=== PATIENT | female | born 1965 | race Caucasian/White ===

== ENCOUNTER 2015-11-20 12:33 | Outpatient (RCR) | payer BC ==
[2015-07-10 13:22] VITALS: BP 132/81
[~2015-11-20 12:33] MED LIST: ALBUTEROL2.5 MG/3 M IH; AMARYL4 M1 PO; COZAAR25 M1 PO; ESTRADIOL TD; GLUCOPHAGE500 MG/TAB PO; LANTUS PEN100 U/ML SC; LEVOTHYROXINE125 MCG PO; NAPROSYN500 M1 PO; NOVOLOG 100U100 U/ML SQ; PREDNISONE20 M1 PO; SIMVASTATIN40 M1 PO; SYMBICORT1 AE2 IH; TANZEUM30 MG SC; [UNRECOGNIZED DRUG - OTHER] TD
[2016-09-24] MEDS ORDERED: NEURONTIN100 M1 PO (12:42)
== END 2016-02-18 | disposition home or self-care (01) ==
LOC: OT
DX: S56.911D Strain of unspecified muscles, fascia and tendons at forearm level, right arm, subsequent encounter (principal); Y33.XXXD Other specified events, undetermined intent, subsequent encounter

== ENCOUNTER → 2016-04-26 | Outpatient (CLI) | payer OTHER ==
[~2016-04-26] MED LIST changes: +NEURONTIN100 M1 PO
== END ==
LOC: LAB 08:49
DX: E78.2 Mixed hyperlipidemia (principal); E11.9 Type 2 diabetes mellitus without complications; C73 Malignant neoplasm of thyroid gland

== ENCOUNTER → 2016-06-25 | Outpatient (CLI) | payer OTHER ==
[2015-07-10 13:22] VITALS: BP 132/81
== END ==
LOC: LAB 07:50
DX: E78.2 Mixed hyperlipidemia (principal); E11.8 Type 2 diabetes mellitus with unspecified complications; E11.65 Type 2 diabetes mellitus with hyperglycemia; Z79.4 Long term (current) use of insulin; C73 Malignant neoplasm of thyroid gland

== ENCOUNTER → 2016-09-24 | Outpatient (CLI) | payer OTHER ==
[~2016-09-24] VITALS: Ht 167.6 cm; Wt 97.7 kg
[2016-09-24 11:05] VITALS: BP 143/84
[2016-09-24 13:06] VITALS: BP 136/70
[2016-09-24 13:45] VITALS: BP 121/71
== END ==
LOC: LAB 10:51 → AMSURD 10:51 → RAD 10:51
DX: R19.7 Diarrhea, unspecified (principal); R10.9 Unspecified abdominal pain; K92.1 Melena; R53.1 Weakness; R55 Syncope and collapse
CPT/HCPCS: C9113; J7030

== ENCOUNTER → 2016-09-27 | Outpatient (CLI) | payer OTHER ==
[2016-09-24 13:45] VITALS: BP 121/71
== END ==
LOC: LAB 08:16
DX: R19.7 Diarrhea, unspecified (principal); R10.9 Unspecified abdominal pain; K92.1 Melena; R55 Syncope and collapse; R53.1 Weakness

== ENCOUNTER → 2018-05-05 | Outpatient (CLI) | payer OTHER ==
[2016-09-24 13:45] VITALS: BP 121/71
[2018-05-05 10:53] LABS: EOS # 0.2 (0.04-0.40); EOS % 3.6 % (1.0-5.0); HEMATOCRIT 40.3 % (37.0-47.0); HEMOGLOBIN 13.4 g/dL (12.5-16.0); LYMPH# 1.7 (1.50-4.00); MEAN CELL VOLUME 85 fl (78-100); MEAN CORPUSCULAR HEMOGLOBIN 28 pg (27-31); MEAN CORPUSCULAR HGB CONC 33 g/dL (33-37); MEAN PLATELET VOLUME 9.2 fl (7.4-10.4); MONO # 0.4 (0.20-0.80); NEU # 3.4 (1.40-6.50); PLATELET COUNT 361 K/mm3 (130-400); RED BLOOD COUNT 4.77 M/mm3 (4.10-5.30); RED CELL DISTRIBUTION WIDTH 13.4 % (11.5-14.5); WHITE BLOOD COUNT 5.6 K/mm3 (4.8-10.8)
[2018-05-05 11:06] LABS: ALBUMIN 3.9 g/dL (3.5-5.0); CALCIUM 8.8 mg/dL (8.4-10.2); POTASSIUM 4.1 mmol/L (3.6-5.0); TOTAL BILIRUBIN 0.6 mg/dL (0.2-1.3); TOTAL PROTEIN 7.3 g/dL (6.3-8.2)
[2018-05-05 12:22] LABS: ERYTHROCYTE SEDIMENTATION RATE 23 mm/hr (0-30)
== END ==
LOC: LAB 09:54
PROVIDERS: Internal Medicine
DX: E11.9 Type 2 diabetes mellitus without complications (principal); E78.2 Mixed hyperlipidemia; C73 Malignant neoplasm of thyroid gland; R20.2 Paresthesia of skin; K90.9 Intestinal malabsorption, unspecified

== ENCOUNTER → 2018-05-07 | Outpatient (CLI) | payer OTHER ==
[2016-09-24 13:45] VITALS: BP 121/71
== END ==
LOC: LAB 08:27
PROVIDERS: Internal Medicine
DX: K90.9 Intestinal malabsorption, unspecified (principal)

== ENCOUNTER → 2018-07-06 | Outpatient (CLI) | payer OTHER ==
[2016-09-24 13:45] VITALS: BP 121/71
== END ==
LOC: RAD 09:05
DX: M46.92 Unspecified inflammatory spondylopathy, cervical region (principal); G89.18 Other acute postprocedural pain

== ENCOUNTER → 2018-07-15 | Outpatient (CLI) | payer OTHER ==
[2016-09-24 13:45] VITALS: BP 121/71
== END ==
LOC: RAD 08:09
DX: M47.812 Spondylosis without myelopathy or radiculopathy, cervical region (principal)

== ENCOUNTER 2018-07-27 14:30 | Outpatient (RCR) | payer OTHER ==
[2016-09-24 13:45] VITALS: BP 121/71
== END 2018-08-09 ==
LOC: PT
DX: S29.012A Strain of muscle and tendon of back wall of thorax, initial encounter (principal); M25.519 Pain in unspecified shoulder

== ENCOUNTER 2018-08-13 16:00 | Outpatient (RCR) | payer OTHER ==
[2016-09-24 13:45] VITALS: BP 121/71
== END 2018-08-13 16:30 | disposition still patient (30) ==
LOC: PT 16:00
DX: S29.012A Strain of muscle and tendon of back wall of thorax, initial encounter (principal)

== ENCOUNTER → 2019-06-22 | Outpatient (CLI) | payer OTHER ==
[2016-09-24 13:45] VITALS: BP 121/71
[2019-06-22 14:44] LABS: ALBUMIN 3.7 g/dL (3.5-5.0); POTASSIUM 4.3 mmol/L (3.5-5.1)
[2019-06-22 14:45] LABS: CALCIUM 8.9 mg/dL (8.3-10.5)
[2019-06-22 14:46] LABS: TOTAL PROTEIN 7.2 g/dL (6.4-8.3)
[2019-06-22 14:49] LABS: EOS # 0.2 (0.04-0.40); EOS % 3.7 % (1.0-5.0); HEMATOCRIT 38.7 % (37.0-47.0); HEMOGLOBIN 12.7 g/dL (12.5-16.0); LYMPH# 1.8 (1.50-4.00); MEAN CELL VOLUME 85 fl (78-100); MEAN CORPUSCULAR HEMOGLOBIN 28 pg (27-31); MEAN CORPUSCULAR HGB CONC 33 g/dL (33-37); MEAN PLATELET VOLUME 9.3 fl (7.4-10.4); MONO # 0.4 (0.20-0.80); PLATELET COUNT 355 K/mm3 (130-400); RED BLOOD COUNT 4.56 M/mm3 (4.10-5.30); RED CELL DISTRIBUTION WIDTH 13.4 % (11.5-14.5); WHITE BLOOD COUNT 5.4 K/mm3 (4.8-10.8)
[2019-06-22 15:19] LABS: D-DIMER 0.31 mg/L FEU (0.15-0.50)
[2019-06-22 15:28] LABS: TOTAL BILIRUBIN 0.3 mg/dL (0.2-1.2)
== END ==
LOC: RAD 14:01
PROVIDERS: Internal Medicine
DX: R06.02 Shortness of breath (principal)

== ENCOUNTER → 2019-06-30 | Outpatient (CLI) | payer OTHER ==
[2016-09-24 13:45] VITALS: BP 121/71
== END ==
LOC: VAS 15:41 → RAD 15:45
DX: E11.9 Type 2 diabetes mellitus without complications (principal); R06.02 Shortness of breath; R60.9 Edema, unspecified

== ENCOUNTER → 2019-07-09 | Outpatient (CLI) | payer OTHER ==
[2016-09-24 13:45] VITALS: BP 121/71
[2019-07-09 10:35] LABS: POTASSIUM 4.1 mmol/L (3.5-5.1)
[2019-07-09 10:36] LABS: CALCIUM 9.4 mg/dL (8.3-10.5)
[2019-07-09 10:43] LABS: MAGNESIUM 1.54 mg/dL (1.60-2.60)
== END ==
LOC: LAB 09:50
PROVIDERS: Internal Medicine
DX: E11.9 Type 2 diabetes mellitus without complications (principal); R60.1 Generalized edema

== ENCOUNTER 2020-07-19 20:42 | Observation (INO) | payer OTHER ==
[~2020-07-19 20:42] MED LIST changes: -ESTRADIOL TD; +ESTRADIOL0.1 MG/24 TD; -LANTUS PEN100 U/ML SC; +LANTUS SOLOS100 U/ML SQ; -[UNRECOGNIZED DRUG - OTHER] TD
[2020-07-19 21:25] LABS: BASO # 0.01 (0.02-0.10); EOS % 3.7 % (1.0-5.0); HEMATOCRIT 36.6 % (37.0-47.0); HEMOGLOBIN 12.6 g/dL (12.5-16.0); LYMPH# 2.16 (1.50-4.00); MEAN CELL VOLUME 84 fl (78-100); MEAN CORPUSCULAR HEMOGLOBIN 29 pg (27-31); MEAN CORPUSCULAR HGB CONC 34 g/dL (33-37); MONO # 0.23 (0.20-0.80); NEU # 2.75 (1.40-6.50); PLATELET COUNT 283 K/mm3 (130-400); RED BLOOD COUNT 4.34 M/mm3 (4.10-5.30); RED CELL DISTRIBUTION WIDTH 13.7 % (11.5-14.5); WHITE BLOOD COUNT 5.4 K/mm3 (4.8-10.8)
[2020-07-19 21:36] LABS: ALBUMIN 3.8 g/dL (3.5-5.0); POTASSIUM 4.1 mmol/L (3.5-5.1)
[2020-07-19 21:37] LABS: CALCIUM 8.8 mg/dL (8.3-10.5)
[2020-07-19 21:38] LABS: TOTAL PROTEIN 7.8 g/dL (6.4-8.3)
[2020-07-19 21:40] LABS: TOTAL BILIRUBIN 0.4 mg/dL (0.2-1.2)
[2020-07-19 22:50] LABS: URINE APPEARANCE CLEAR; URINE BILIRUBIN NEGATIVE (NEGATIVE); URINE BLOOD TRACE (NEGATIVE); URINE COLOR YELLOW; URINE KETONE NEGATIVE (NEGATIVE); URINE LEUKOCYTE ESTERASE NEGATIVE (NEGATIVE); URINE NITRATE NEGATIVE (NEGATIVE); URINE PROTEIN(semi-quant) NEGATIVE (NEGATIVE); URINE UROBILINOGEN NORMAL (NORMAL); URINE WBC 0-1 /hpf (0-3)
[2020-07-19 23:40] LABS: D-DIMER 0.4 mg/L FEU (0.15-0.50)
[2020-07-19] MEDS ORDERED: VITAMIN D350 MC1 PO (23:53)
[2020-07-19] MEDS ORDERED: RT ALBUTEROL CC18 GM IH (23:53)
[2020-07-19] MEDS ORDERED: EUTHYROX100 MCG PO (23:55)
[2020-07-19] MEDS ORDERED: EUTHYROX88 MCG PO (23:55)
[2020-07-19] MEDS ORDERED: FLUTICASONE-SA1 EAC4 IH (23:56)
[2020-07-19] MEDS ORDERED: LEVOCETIRIZINE D5 MG PO (23:58)
[2020-07-19] MEDS ORDERED: ACTOS 15MG TAB15 MG PO (23:59)
[2020-07-19] MEDS ORDERED: SINGULAIR PO (23:59)
[2020-07-20] MEDS ORDERED: DIOVAN 80MG80 MG PO
[2020-07-20] MEDS ORDERED: ZOCOR 80MG80 MG PO
[2020-07-20 01:32] VITALS: BP 139/65
[2020-07-20 06:04] VITALS: BP 126/70
[2020-07-20 07:25] LABS: BASO # 0.01 (0.02-0.10); HEMOGLOBIN 12.4 g/dL (12.5-16.0); LYMPH# 0.61 (1.50-4.00); MEAN CELL VOLUME 86 fl (78-100); MEAN CORPUSCULAR HEMOGLOBIN 29 pg (27-31); MEAN CORPUSCULAR HGB CONC 34 g/dL (33-37); MEAN PLATELET VOLUME 9.1 fl (7.4-10.4); MONO # 0.05 (0.20-0.80); NEU # 5.21 (1.40-6.50); PLATELET COUNT 276 K/mm3 (130-400); RED BLOOD COUNT 4.33 M/mm3 (4.10-5.30); RED CELL DISTRIBUTION WIDTH 13.9 % (11.5-14.5); WHITE BLOOD COUNT 5.9 K/mm3 (4.8-10.8)
[2020-07-20 08:01] LABS: POTASSIUM 4.9 mmol/L (3.5-5.1); SODIUM 135 mmol/L (136-145)
[2020-07-20 08:02] LABS: CALCIUM 8.5 mg/dL (8.3-10.5)
[2020-07-20 08:04] LABS: CARBON DIOXIDE 18 mmol/L (22-29)
[2020-07-20 08:14] LABS: GLUCOSE 463 mg/dL (65-105)
[2020-07-20 08:24] LABS: TROPONIN-I < 0.03 ng/mL (<0.030)
[2020-07-20 08:40] LABS: ERYTHROCYTE SEDIMENTATION RATE 52 mm/hr (0-30)
[2020-07-20 09:22] VITALS: BP 133/70
[2020-07-20] MEDS ORDERED: DOXYCYCLINE MO100 M3 PO (09:54)
[2020-07-20] MEDS ORDERED: BENZONATATE200 MG PO (09:55)
[2020-07-20] MEDS ORDERED: TRAMADOL 50 MG TAB PO (09:57)
== END 2020-07-20 12:15 | disposition home or self-care (01) ==
LOC: ED 20:42 → MED/SURG 07-20 00:01
PROVIDERS: ADMIT Physician Assistant
DX: R07.81 Pleurodynia (principal); M94.0 Chondrocostal junction syndrome [Tietze]; J45.909 Unspecified asthma, uncomplicated; N28.9 Disorder of kidney and ureter, unspecified; E86.0 Dehydration; E89.0 Postprocedural hypothyroidism; E11.65 Type 2 diabetes mellitus with hyperglycemia; G47.33 Obstructive sleep apnea (adult) (pediatric); E78.5 Hyperlipidemia, unspecified; Z85.850 Personal history of malignant neoplasm of thyroid; Z79.4 Long term (current) use of insulin; Z79.890 Hormone replacement therapy; Z79.899 Other long term (current) drug therapy
CPT/HCPCS: G0378; J1815; J1885; J2930; J3010; J7030

== ENCOUNTER → 2020-11-28 | Outpatient (CLI) | payer OTHER ==
[~2020-11-28] MED LIST changes: +ACTOS 15MG TAB15 MG PO; +BENZONATATE200 MG PO; +DIOVAN 80MG80 MG PO; +DOXYCYCLINE MO100 M3 PO; +EUTHYROX100 MCG PO; +EUTHYROX88 MCG PO; +FLUTICASONE-SA1 EAC4 IH; +LEVOCETIRIZINE D5 MG PO; +RT ALBUTEROL CC18 GM IH; +SINGULAIR PO; +TRAMADOL 50 MG TAB PO; +VITAMIN D350 MC1 PO; +ZOCOR 80MG80 MG PO
[2020-11-28 11:57] LABS: ALBUMIN 3.6 g/dL (3.5-5.0); POTASSIUM 4.1 mmol/L (3.5-5.1)
[2020-11-28 11:59] LABS: CALCIUM 9.7 mg/dL (8.3-10.5)
[2020-11-28 12:00] LABS: TOTAL PROTEIN 7.1 g/dL (6.4-8.3)
[2020-11-28 12:02] LABS: TOTAL BILIRUBIN 0.4 mg/dL (0.2-1.2)
== END ==
LOC: LAB 10:56
PROVIDERS: Internal Medicine
DX: B35.1 Tinea unguium (principal); M25.532 Pain in left wrist

== ENCOUNTER → 2020-12-05 | Outpatient (CLI) | payer OTHER | LOC: RAD 08:24 | DX: M19.032 Primary osteoarthritis, left wrist (principal); S66.912A Strain of unspecified muscle, fascia and tendon at wrist and hand level, left hand, initial encounter ==

== ENCOUNTER 2021-02-01 07:58 | Outpatient (RCR) | payer OTHER | END 2021-02-16 23:59 | disposition home or self-care (01) | LOC: OT 07:58 | DX: M79.642 Pain in left hand (principal) ==

== ENCOUNTER 2021-03-05 09:00 | Outpatient (RCR) | payer OTHER | END 2021-03-19 | disposition home or self-care (01) | LOC: OT | DX: M79.642 Pain in left hand (principal) ==

== ENCOUNTER → 2021-03-15 | Outpatient (CLI) | payer OTHER | LOC: LAB 14:14 | DX: U07.1 COVID-19 (principal) ==

== ENCOUNTER → 2021-10-24 | Outpatient (CLI) | payer OTHER | LOC: RAD 15:42 | DX: J98.11 Atelectasis (principal) ==

== ENCOUNTER → 2023-07-22 | Outpatient (CLI) | payer OTHER | LOC: LAB 12:26 | DX: E11.9 Type 2 diabetes mellitus without complications (principal); E78.2 Mixed hyperlipidemia; K90.9 Intestinal malabsorption, unspecified; I10 Essential (primary) hypertension; R06.00 Dyspnea, unspecified ==

== ENCOUNTER → 2024-01-08 | Outpatient (CLI) | payer OTHER | LOC: RAD 16:42 | DX: M19.072 Primary osteoarthritis, left ankle and foot (principal) ==